=== PATIENT | male | born 1970 | race Caucasian/White ===

== ENCOUNTER → 2020-03-14 | Outpatient (CLI) | payer BC ==
[~2020-03-14] MED LIST: COUMADIN 5 MG TA5 M1 PO; LIPITOR10 MG PO; LISINOPRIL10 MG PO; LOVENOX SC; NO HOME MEDS
== END ==
LOC: LAB 12:17
PROVIDERS: ATTEND Family Medicine
DX: U07.1 COVID-19 (principal)